=== PATIENT | female | born 1965 | race African-American/Black ===

== ENCOUNTER 2017-02-13 15:04 | Emergency (ER) | payer OTHER ==
[~2017-02-13] VITALS: Ht 167.6 cm; Wt 122.9 kg
[~2017-02-13 15:04] MED LIST: AMOXICILLIN500 M1 PO; DICLOFENAC SODI75 MG PO; FLEXERIL10 MG PO; KEFLEX500 MG PO; LORTAB 5-325 M1 EACH PO; NAPROSYN500 MG PO; NAPROXEN500 MG PO; NORCO 5/3251 TABLET PO; PEN-VEE K,VEET250 MG PO; PEN-VEE K,VEET500 MG PO; PERCOCET 5/31 TABLET PO; REGLAN10 MG PO; ULTRAM50 MG PO; VALIUM5 MG PO
[2017-02-13 15:47] VITALS: BP 132/90
[2017-02-14] MEDS ORDERED: NORCO 5/3251 TABLET PO (17:03)
[2017-02-14] MEDS ORDERED: SKELAXIN800 MG PO (17:03)
== END 2017-02-13 16:59 | disposition left against medical advice (07) ==
LOC: EME 15:04
DX: M79.601 Pain in right arm (principal); Z53.21 Procedure and treatment not carried out due to patient leaving prior to being seen by health care provider

== ENCOUNTER 2017-02-14 14:03 | Emergency (ER) | payer OTHER ==
[~2017-02-14] VITALS: Ht 167.6 cm; Wt 119.5 kg
[2017-02-14] MEDS ORDERED: SKELAXIN800 MG PO (17:03)
[2017-02-14] MEDS ORDERED: NORCO 5/3251 TABLET PO (17:03)
[2017-02-14 17:37] VITALS: BP 139/66
== END 2017-02-14 17:39 | disposition home or self-care (01) ==
LOC: EME 14:03
DX: S46.911A Strain of unspecified muscle, fascia and tendon at shoulder and upper arm level, right arm, initial encounter (principal); M62.838 Other muscle spasm; X50.9XXA Other and unspecified overexertion or strenuous movements or postures, initial encounter; Y92.522 Railway station as the place of occurrence of the external cause; Z88.6 Allergy status to analgesic agent
CPT/HCPCS: 73030; 99281; 99284; J8540